=== PATIENT | female | born 1955 | race Two or more races ===

== ENCOUNTER 2023-08-13 18:45 | Inpatient (IN) | payer OTHER ==
[~2023-08-13] VITALS: Ht 167.6 cm; Wt 82.0 kg
[2023-08-13 19:33] LABS: Alanine Aminotransferase 34 U/L (7-40); Albumin 4.4 g/dL (3.2-4.8); Alkaline Phosphatase 121 U/L (46-116); Anion Gap 12 (5-15); Aspartate Aminotransferase 33 U/L (13-40); BUN/Creatinine Ratio 17.8 (10.0-20.0); Blood Urea Nitrogen 13 mg/dL (9-23); Calcium 10.5 mg/dL (8.7-10.4); Carbon Dioxide 25 mmol/L (20-30); Chloride 105 mmol/L (98-107); Glucose 144 mg/dL (74-106); Potassium 3.9 mmol/L (3.5-5.1); Sodium 142 mmol/L (136-145)
[2023-08-13 19:34] LABS: Bilirubin, Total 0.7 mg/dL (0.2-1.0); Total Protein 7.3 g/dL (5.7-8.2)
[2023-08-13 22:05] LABS: Basophils # (auto) 0 10 ^3/uL (0-0.2); Basophils % (auto) 0.2 % (0.0-2.0); Eosinophils # (auto) 0.3 10 ^3/uL (0-0.8); Eosinophils % (auto) 3.1 % (0.0-7.0); Hematocrit 42.4 % (36.0-46.0); Hemoglobin 14.3 g/dL (12.2-16.2); Lymphocytes # (auto) 4.5 10 ^3/uL (0.4-5.4); Lymphocytes % (auto) 42.8 % (10.0-50.0); Mean Corpuscular Hemoglobin 33.4 pg (28.0-32.0); Mean Corpuscular Hgb Conc. 33.8 g/dL (32.0-36.0); Mean Corpuscular Volume 98.9 fL (80.0-100.0); Monocytes # (auto) 0.9 10 ^3/uL (0-1.3); Monocytes % (auto) 8.2 % (0.0-12.0); Neutrophils # (auto) 4.8 10 ^3/uL (1.6-8.6); Neutrophils % (auto) 45.7 % (37.0-80.0); Nucleated Red Blood Cells % 0.1 %; Red Blood Cells 4.29 10^6/uL (4.0-5.20); Red Cell Distribution Width 13.4 % (11.8-14.3); White Blood Cell 10.6 10^3/uL (4.4-10.8)
[2023-08-14] VITALS (9 sets, daily range): BP systolic 92–120; BP diastolic 58–73; PULSE 59–74; RESP 14–18; TEMP 97.7–98.6; O2SAT 94–96
[2023-08-14 01:22] LABS: Urine Bacteria None Seen /hpf (None Seen)
[2023-08-14 01:32] LABS: Urine Blood Negative /uL (Negative); Urine Clarity Turbid (Clear); Urine Color Yellow (Yellow); Urine Mucus FEW (None Seen); Urine Protein, UAD TRACE (Negative); Urine Specific Gravity 1.028 (1.001-1.035); Urine Urobilinogen Normal (Negative); Urine WBC 62 /hpf (0 - 5); Urine pH 5.5 (5.0-9.0)
[2023-08-14] MEDS: ASPirin 325 MG TAB PO ONE (02:22)
[2023-08-14] MEDS: NITROGLYCERIN 2% OINT 1GM PKG TD ONE (02:24)
[2023-08-14] MEDS: cefTRIAXone 1GM/50ML D5W 50 ML IV ONE (02:48)
[2023-08-14] MEDS ORDERED: HYDROcodone-ACET 5/325MG TAB PO PRN (03:45)
[2023-08-14] MEDS ORDERED: NITROGLYCERIN 0.4 MG SL TAB SL PRN (03:45)
[2023-08-14] MEDS ORDERED: DEXTROSE (50%) 50ML SYRG IV PRN (03:45)
[2023-08-14] MEDS ORDERED: MORPHINE SULFATE INJ 2 MG/ml SYRG IV PRN (03:45)
[2023-08-14] MEDS ORDERED: METF-370 PO (05:52)
[2023-08-14] MEDS ORDERED: ATOR40TA52 PO (05:52)
[2023-08-14] MEDS ORDERED: LISI10TA34 PO (05:52)
[2023-08-14] MEDS: ACCU-CHEK COMFORT CURVE STRIP VI SCH (06:29)
[2023-08-14] MEDS: InsuLIN REG 1unit/0.01ml Soln (100units/ml) SC SCH (06:31)
[2023-08-14] MEDS: CEPHALEXIN 250 MG CAP PO SCH (09:14)
[2023-08-14] MEDS: ACETAMINOPHEN 325 MG TAB PO PRN (12:49)
[2023-08-14] MEDS ORDERED: ASPI-498 PO (13:25)
[2023-08-14] MEDS ORDERED: CEPH250C PO (13:25)
== END 2023-08-14 23:49 | disposition home or self-care (01) | DRG 206 ==
LOC: ER 18:45 → TELE 08-14 03:40 → TELE-WESTW 08-14 05:19
PROVIDERS: ADMIT Internal Medicine; ATTEND Internal Medicine
DX: M94.0 Chondrocostal junction syndrome [Tietze] (principal); N39.0 Urinary tract infection, site not specified; I10 Essential (primary) hypertension; E78.00 Pure hypercholesterolemia, unspecified; E11.9 Type 2 diabetes mellitus without complications; Z90.81 Acquired absence of spleen; Z79.4 Long term (current) use of insulin; Z79.899 Other long term (current) drug therapy
CPT/HCPCS: 36415; 71045; 80053; 81001; 82962; 83880; 84484; 93005; 93306; 96365; G0378